=== PATIENT | male | born 1975 | race American Indian/Alaskan Native ===

== ENCOUNTER 2017-02-28 15:30 | Emergency (ER) | payer OTHER ==
[2017-02-28] MEDS ORDERED: NORCO 5/325 ONE (18:25)
[2017-02-28] MEDS ORDERED: BOOSTRIX IM ONE (18:26)
[2017-02-28] MEDS ORDERED: XYLOCAINE 2% INFILTRATI ONE (18:27)
[2017-02-28] MEDS ORDERED: KEFLEX PO ONE (21:01)
--- NOTE | 2017-02-28 21:01 | Emergency Department Report ---
Upper Extremity - HPI Time Seen by Provider: 02/28/17 20:56 Upper Extremity: Left Hand Mechanism: Hit with Object Severity: moderate Symptoms: Yes Pain with Movement, Yes Laceration or Abrasion (left palmar laceration), No Deformity, No Limited Range of Movement, No Numbness, No Weakness, No Swelling, No Bruising/Ecchymosis Other History: 41M PMH none p/w c/o left hand laceration sustained while moving tree branch today. Deneis any other injury, Tdap not uptodate. Pt aaox3, has visible 3-4 inch laceration to left palm. ED Review of Systems ROS: Stated complaint: Other details as noted in HPI Constitutional: denies: chills, fever Eyes: denies: eye pain, eye discharge, vision change ENT: denies: ear pain, throat pain Respiratory: denies: cough, shortness of breath, wheezing Cardiovascular: denies: chest pain, palpitations Endocrine: no symptoms reported Gastrointestinal: denies: abdominal pain, nausea, diarrhea Genitourinary: denies: urgency, dysuria Musculoskeletal: denies: back pain, joint swelling, arthralgia Skin: denies: rash, lesions Neurological: denies: headache, weakness, paresthesias Psychiatric: denies: anxiety, depression Hematological/Lymphatic: denies: easy bleeding, easy bruising ED Past Medical Hx - Medications Home Medications: Home Medications Medication Instructions Recorded Confirmed Last Taken Type Acetaminophen/Codeine [Tylenol 1 tab PO Q6H PRN #9 tab 02/28/17 Unknown Rx /Codeine # 3 tab] Cephalexin [Keflex] 500 mg PO Q12HR #14 cap 02/28/17 Unknown Rx HYDROcodone/APAP 5-325 [[place] 1 each PO Q6HR PRN #15 tablet 02/28/17 Unknown Rx 5/325] Ibuprofen [Motrin] 800 mg PO Q8HR PRN #30 tablet 02/28/17 Unknown Rx Upper Extremity Exam - Exam General: Vital signs noted. No distress. Alert and acting appropriately. Head and Torso: No HEENT Abnormality, No Neck Tenderness, No Chest/Lungs Abnormality, No Abdominal Tenderness, No Back Tenderness Shoulder Exam: Yes Normal Range of Motion in Shoulder, No Shoulder Tenderness, No Clavicle Tenderness, No Shoulder Deformity, No AC Joint Tenderness Arm Exam: No Arm/Humerus Tenderness, No Arm Deformity Elbow: No Elbow Tenderness, No Normal Range of Motion in Elbow, No Elbow Deformity Forearm: No Forearm Tenderness, No Forearm Deformity, No Pain with Pronation, No Pain with Supination Wrist: Yes Normal ROM in Wrist, No Wrist Tenderness, No Wrist Deformity, No Snuffbox Tenderness (NO snuffbox pain on exam), No Pain with Axial Thumb Compression Hand: Yes Hand Tenderness (4inch diagonal laceration left palm edge), Yes Hand Deformity, Yes Normal ROM in Digit(s), No Digit Tenderness, No Digit(s) Deformity, No Tendon Dysfunction CMS Exam: Yes Broken Skin (laceration left palm), Yes Normal Distal Pulses ( distal radial, brachial and ulnar pulses intact. Distal cap refill less than 1 second all fingers), Yes Normal Capillary Refill, Yes Normal Distal Sensation Hand L/R Front: 1 - laceration here ED Medical Decision Making - Medical Decision Making a/p: left palm laceration 1- motrin, norco prn 2- course of keflex 500mg bid 7 days 3- tdap uptdate 4- sutures to be removed in 7 days, i advised pt to return to ED if he experiences fevers, chills, pus drainage from area 5- xray unremarkable. i perfmored wet read of my own due to logistic limitations and power shortages/ radiology issues in the hospital at time of pts care. I placed pt in hand splitn to immoblize region of laceration and promote wound healing/mitigate wound dehiscence. Critical care attestation.: If time is entered above; I have spent that time in minutes in the direct care of this critically ill patient, excluding procedure time. ED Disposition Clinical Impression: Laceration of left hand Qualifiers: Encounter type: initial encounter Foreign body presence: with foreign body Qualified Code(s): S61.422A - Laceration with foreign body of left hand, initial encounter Disposition: TO HOME OR SELFCARE Is pt being admited?: No Does the pt Need Aspirin: No Condition: Stable Instructions: Suture Care (ED), Laceration (ED), Soft Tissue Foreign Body (ED) Additional Instructions: return to ED in 7-10 days for suture removal Prescriptions: Acetaminophen/Codeine [Tylenol /Codeine # 3 tab] 1 tab PO Q6H PRN #9 tab PRN Reason: Pain Cephalexin [Keflex] 500 mg PO Q12HR #14 cap HYDROcodone/APAP 5-325 [[place] 5/325] 1 each PO Q6HR PRN #15 tablet PRN Reason: Pain Ibuprofen [Motrin] 800 mg PO Q8HR PRN #30 tablet PRN Reason: Pain Referrals: DOC,ED, MD [Primary Care Provider] - 3-5 Days Time of Disposition: 20:59
[2017-02-28] MEDS ORDERED: TRIPLE ANTIBIOTIC TP ONE ×2 (21:08→21:11)
[2017-02-28 21:15] VITALS: BP 129/79
--- NOTE | 2017-03-01 08:12 | XRay Report ---
XRAY LEFT HAND THREE VIEWS: 02/28/17 19:22 CLINICAL: Trauma with lacerations the base of the thumb. FINDINGS: No fracture or dislocation. 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 Normal soft tissues. No foreign body or soft tissue air. IMPRESSION: Negative.
== END 2017-02-28 21:15 | disposition home or self-care (01) ==
LOC: ED 15:30
DX: S61.422A Laceration with foreign body of left hand, initial encounter (principal); W26.8XXA Contact with other sharp object(s), not elsewhere classified, initial encounter; Y93.89 Activity, other specified; Y92.89 Other specified places as the place of occurrence of the external cause; Y99.8 Other external cause status
CPT/HCPCS: 90471; 90715; A6250